=== PATIENT | male | born 1945 | race Caucasian/White ===

== ENCOUNTER 2016-12-15 12:05 | Emergency (ER) | payer OTHER, BC ==
[2016-12-15 12:12] VITALS: TEMP 98.3; BMI 27.8
--- NOTE | 2016-12-15 12:15 | PDOC ---
History of Present Illness - General Chief Complaint: Headache Stated Complaint: CHILLS, HEADACHE Time Seen by Provider: 12/15/16 12:08 History Source: Patient Exam Limitations: No Limitations - History of Present Illness Initial Comments: 12/15/16 12:13 This is a 71 yo M h/o hld, htn, afib s/p RF ablation who presents to the ER with a complaint of intermittent fevers and scalp sensitivity He was in his usual state of health until 2 weeks ago when he noted a gradual onset of symptoms Pt states he noted intermittent feelings of being feverish and left scalp sensitivity. He takes his temperature and never actually notes a fever This pain currently is 3/10 Pain is constant He typically takes Excedrine for his pain which improves his symptoms but never takes it away Denies trauma Denies travel Was seen by his PMD early into his symptoms, given Augmentin for a cough Pt states his cough has resolved Pt was also seen at an urgent care where, CXR was performed and read as negative PMH: migraines, hld, htn, afib s/p RF ablation PSH: RF ablation Meds: Elliquis ALL: NKDA Social: (+) social alcohol, denies drugs or cigarettes GENERAL/CONSTITUTIONAL: No: fever, chills, weakness, loss of appetite. HEAD, EYES, EARS, NOSE AND THROAT: No: change in vision, ear pain, discharge, sore throat, throat swelling. CARDIOVASCULAR: No: chest pain, lightheadedness, palpitations, syncope RESPIRATORY: No: cough, shortness of breath, wheezing, hemoptysis, stridor. GASTROINTESTINAL: No: nausea, vomiting, diarrhea, abdominal cramping, rectal bleeding, constipation. GENITOURINARY: No: dysuria, hematuria, frequency, urgency, flank pain. MUSCULOSKELETAL: No: back pain, neck pain, joint pain, muscle swelling or pain SKIN AND BREASTS: No: lesions, pallor, rash or easy bruising. NEUROLOGIC: No: headache, vertigo, paresthesias, weakness ENDOCRINE: No: unexplained weight gain or loss HEMATOLOGIC/LYMPHATIC: No: anemia, easy bleeding, swelling nodes. GENERAL: The patient is in no acute distress. HEAD: Normal with no signs of trauma. EYES: PERRLA, EOMI, sclera anicteric, conjunctiva clear. ENT: Ears normal, nares patent, oropharynx clear without exudates. Moist mucous membranes. NECK: Normal range of motion, supple without lymphadenopathy, JVD, or masses. LUNGS: Breath sounds equal, clear to auscultation bilaterally. No wheezes, and no crackles. HEART:Regular rate and rhythm, normal S1 and S2 without murmur, rub or gallop. ABDOMEN: Soft, nontender, normoactive bowel sounds. No guarding, no rebound. No masses palpable. EXTREMITIES: Normal range of motion, no edema. No clubbing or cyanosis. No erythema, or tenderness. NEUROLOGICAL: Cranial nerves II through XII grossly intact. Normal speech. No focal neurological deficits. MUSCULOSKELETAL: Back non-tender to palpation, no CVA tenderness SKIN: Warm, Dry, normal turgor, no rashes or lesions noted. 12/15/16 12:28 12/15/16 12:34 Past History - Past Medical History Allergies/Adverse Reactions: Allergies Allergy/AdvReac Type Severity Reaction Status Date / Time No Known Allergies Allergy Verified 01/18/14 13:47 Home Medications: Ambulatory Orders Ramipril 5 mg PO AM 01/18/14 Rosuvastatin Calcium [Crestor] 10 mg PO AM 01/18/14 Apixaban [Eliquis] 5 mg PO BID 12/15/16 Anemia: No Asthma: No Cancer: No Cardiac Disorders: Yes (ATRIAL FIBRILLATION) CVA: No COPD: No CHF: No Dementia: No Diabetes: No GI Disorders: No Disorders: No HTN: Yes Hypercholesterolemia: Yes Liver Disease: No Seizures: No Thyroid Disease: No - Surgical History Abdominal Surgery: No Appendectomy: No Cardiac Surgery: Yes (ABLATION FOR AFIB) Cholecystectomy: No Lung Surgery: No Neurologic Surgery: No Orthopedic Surgery: No - Psycho/Social/Smoking Cessation Hx Anxiety: No Suicidal Ideation: No Smoking History: Former smoker Have you smoked in the past 12 months: No Information on smoking cessation initiated: No Hx Alcohol Use: Yes (occasional) Drug/Substance Use Hx: No Substance Use Type: Alcohol Hx Substance Use Treatment: No *Physical Exam - Vital Signs Last Vital Signs Temp Pulse Resp BP Pulse Ox 98.3 F 53 L 18 145/86 99 12/15/16 12:05 12/15/16 12:05 12/15/16 12:05 12/15/16 12:05 12/15/16 12:05 Heart Score/ECG Review #1 ECG reviewed & interpreted by me at: 13:20 12/15/16 13:20 Twelve-lead EKG was performed and reviewed by me. There is normal sinus rhythm with a bradycardiac rate of 55 bpm. The axis is normal. The intervals are normal - pr:166ms, QRS:92ms, QTc:441ms. There are no ST elevations or depressions. T wave nml (+) PVC ED Treatment Course - LABORATORY CBC & Chemistry Diagram: 12/15/16 12:15 12/15/16 12:15 Medical Decision Making - Medical Decision Making 12/15/16 12:33 Will do basic labs Pt has already had a reportedly negative CXR and was already treated for pneumonia, will not do CXR Will do head CT will re assess 12/15/16 13:20 Laboratory Tests 12/15/16 12/15/16 12/15/16 12:15 12:15 12:15 WBC 5.1 Hgb 15.6 Hct 46.8 Plt Count 169 Neutrophils % 52.6 Lymphocytes % 30.7 Sodium 130 L Potassium 4.7 Chloride 98 Carbon Dioxide 25 Anion Gap 7 L BUN 19 H Creatinine 0.8 Random Glucose 95 Creatine Kinase 89 12/15/16 14:04 Laboratory Tests 12/15/16 12:15 Troponin I < 0.03 L 12/15/16 14:19 Case reviewed with Cardiology (who is upset that we even did an EKG) we were faxed copies of his old EKG which show bradycardia 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 I answered all of the patient's questions. The patient was satisfied with the care received and felt comfortable with the discharge plan and treatment plan. The patient will call their primary care physician within 24 hours to arrange follow-up and will return to the Emergency Department with any new, persistent or worsening symptoms. *DC/Admit/Observation/Transfer Diagnosis at time of Disposition: Headache Qualifiers: Headache type: unspecified Headache chronicity pattern: unspecified pattern Intractability: intractable Qualified Code(s): R51 - Headache - Discharge Dispostion Disposition: HOME Condition at time of disposition: Stable Admit: No - Patient Instructions Printed Discharge Instructions: DI for Headache Additional Instructions: Eugene Thanks for coming in to the ER today Please follow up with your PMD Return to the ER for any other concerns or complaints
[2016-12-15 12:54] LABS: BASOPHIL 1.7 % (0-2.0); EOSINOPHIL 1.9 % (0-4.5); MCH 30.3 pg (25.7-33.7); MCHC 33.3 g/dl (32.0-35.9); MEAN CELL VOLUME 90.9 fl (80-96); MEAN PLT VOLUME 9.1 fl (7.5-11.1); NEUTROPHILS 52.6 % (42.8-82.8); PLATELET COUNT 169 K/MM3 (134-434); RDW 12.5 % (11.9-15.9); WHITE BLOOD COUNT 5.1 K/mm3 (4.0-10.0)
[2016-12-15 13:12] LABS: ALK PHOS 30 U/L (32-92); ANION GAP 7 (8-16); BILIRUBIN,TOTAL 0.7 mg/dl (0.2-1.0); CALCIUM 9.7 mg/dl (8.4-10.2); CO2 25 mmol/L (22-28); CREATININE 0.8 mg/dl (0.6-1.3); GLUCOSE,RANDOM 95 mg/dl (74-106); SGOT/AST 19 U/L (10-42); SGPT/ALT 15 U/L (10-40); TOT PROT 7.1 g/dl (6.4-8.3)
[2016-12-15 13:13] LABS: CPK(DFH) 89 IU/L (38-174)
[2016-12-15 13:54] LABS: TROPONIN I (DFP) < 0.03 ng/ml (0.03-0.50)
[2016-12-15 14:38] VITALS: BP 132/58; PULSE 69
--- NOTE | 2016-12-16 18:13 | EKG ---
Test Reason : Blood Pressure : / mmHG Vent. Rate : 055 BPM Atrial Rate : 055 BPM P-R Int : 166 ms QRS Dur : 092 ms QT Int : 462 ms P-R-T Axes : 047 009 033 degrees QTc Int : 441 ms SINUS BRADYCARDIA WITH OCCASIONAL PREMATURE VENTRICULAR COMPLEXES AND PREMATURE ATRIAL COMPLEXES ABNORMAL ECG NO PREVIOUS ECGS AVAILABLE Confirmed by DARSHANA LOPEZ MD ([id number]) on 12/16/2016 6:12:38 PM Referred By: FIDENCIO CONTRERAS Confirmed By:DARSHANA LOPEZ MD
== END 2016-12-15 14:32 | disposition home or self-care (01) ==
LOC: FER 12:05
DX: R51 Headache (principal); I48.91 Unspecified atrial fibrillation; I10 Essential (primary) hypertension; E78.00 Pure hypercholesterolemia, unspecified; Z87.891 Personal history of nicotine dependence
CPT/HCPCS: 36415; 70450-TC; 80053; 82550; 84484; 85025; 87040; 87804; 93005; 99284-25

== ENCOUNTER 2016-12-18 11:35 | Emergency (ER) | payer OTHER, BC ==
--- NOTE | 2016-12-18 11:41 | PDOC ---
History of Present Illness - General Chief Complaint: Revisit, Lab Variance Stated Complaint: POSITIVE BLD CULTURE FINDINGS Time Seen by Provider: 12/18/16 11:41 - History of Present Illness Initial Comments: 12/18/16 11:55 Chief complaint: Fever/chills, fatigue, malaise History of present illness: Patient was evaluated in the emergency room 2 days ago, at which time blood cultures were drawn. Preliminary blood culture revealed gram-positive cocci in clusters, and the patient was called and asked to return to the ER for further evaluation. His original symptoms of fever/ chills, fatigue, and malaise have persisted. He complains of increased sensitivity of the scalp to touch, but no oma headache. Review of systems: Had a productive cough with blood-streaked sputum approximately 2 weeks ago, treated with a course of antibiotics which she finished approximately one week ago, and his chest symptoms have resolved. There is no headache or photophobia. There is no neck stiffness. There is no lightheadedness, dizziness, vertigo, URI symptoms, sore throat, cough, abdominal pain, nausea, vomiting, diarrhea, chest pain, shortness of breath. There is no dysuria, frequency, urgency, hesitancy, hematuria, perineal pain, or urethral discharge. There are no visual or focal neurologic symptoms or unsteadiness of gait Remainder systems reviewed and found to be negative Past medical history: History of similar "scalp sensitivity" a few years ago which lasted several minutes and resolved. Atrial fibrillation, status post ablation, implanted heart monitor. High blood pressure. Elevated cholesterol Medications: Eliquis, ramipril, Crestor aggravated ALLERGIES: None Social history: Former smoker but no current use of tobacco. No nonprescription drugs. Fully active and ambulatory. Occasional social alcohol, none recently Family history: Reviewed and noncontributory including early coronary artery disease, metabolic disease including diabetes, immune diseases, and cancer Physical exam: Alert and oriented 3, well-developed well-nourished, no acute distress, cooperative Temperature 98.4, remainder of vital signs normal PERRLA, fundi benign, ENT clear Neck supple without bruit mass or nodes Lungs clear to P&A with full breath sounds throughout bilaterally CV S1 and S2 normal, rate is irregularly irregular 60/m, no murmurs rubs or gallops. Pulses full and symmetric. No JVD or edema. No bruits Abdomen nondistended, normal bowel sounds. Soft without masses tenderness organomegaly exam testes descended bilaterally, no masses or tenderness, no urethral discharge. No rashes Extremities no CCE Skin clear, no rash, adequate turgor and what mucous membranes Neurological C2 to 12 intact. Strength full and symmetric. No focal sensory or motor deficits. Gait stable and unimpaired Impression: No obvious sign of infection, although there is general fatigue and malaise. No fever at present, but the patient is a history of persistent subjective fever and chills. Preliminary positive blood culture 2 days ago, possible occult infection in the lungs, urinary tract, or implanted cardiac device. Possible occult endocarditis Plan: Repeat complete blood count cultures, CBC and chemistry, urinalysis and urine culture, chest x-ray, empiric antibiotics and observation. Past History - Past Medical History Allergies/Adverse Reactions: Allergies Allergy/AdvReac Type Severity Reaction Status Date / Time No Known Allergies Allergy Verified 01/18/14 13:47 Home Medications: Ambulatory Orders Ramipril 5 mg PO AM 01/18/14 Rosuvastatin Calcium [Crestor] 10 mg PO AM 01/18/14 Apixaban [Eliquis] 5 mg PO BID 12/15/16 Anemia: No Asthma: No Cancer: No Cardiac Disorders: Yes (ATRIAL FIBRILLATION) CVA: No COPD: No CHF: No Dementia: No Diabetes: No GI Disorders: No Disorders: No HTN: Yes Hypercholesterolemia: Yes Liver Disease: No Seizures: No Thyroid Disease: No - Surgical History Abdominal Surgery: No Appendectomy: No Cardiac Surgery: No Cholecystectomy: No Lung Surgery: No Neurologic Surgery: No Orthopedic Surgery: No - Psycho/Social/Smoking Cessation Hx Anxiety: No Suicidal Ideation: No Smoking History: Former smoker Have you smoked in the past 12 months: No Information on smoking cessation initiated: No Hx Alcohol Use: Yes Drug/Substance Use Hx: No Substance Use Type: Alcohol Hx Substance Use Treatment: No ED Treatment Course - LABORATORY CBC & Chemistry Diagram: 12/18/16 12:00 12/18/16 12:00 Medical Decision Making - Medical Decision Making 12/18/16 13:45 Chest x-ray clear: Urinalysis clear: White count normal. No other significant abnormalities on laboratory work. Late growth in the blood culture may represent a contaminant with skin debby. Positive identification should be available tomorrow Patient appears stable at present. No obvious sign of infection. Condition slowly improving Spoke by phone with Dr. Luevano, infectious disease consult. He reviewed the blood culture, as well as today's lab results. He suspects that after several days, the growth in the blood culture is probably a contaminant. He recommends 1 dose of vancomycin intravenously now, okay for discharge and follow-up tomorrow. 12/18/16 15:30 *DC/Admit/Observation/Transfer Diagnosis at time of Disposition: Viral syndrome - Discharge Dispostion Disposition: HOME Condition at time of disposition: Stable Admit: No - Referrals Referrals: Brett Luevano MD [Staff Physician] - 24 hours - Patient Instructions Printed Discharge Instructions: DI for Viral Syndrome Additional Instructions: Rest, fluids, You will be contacted tomorrow with further results of your blood cultures. They will be reviewed by infectious disease specialist. Return to the hospital immediately if you experience high fevers or shaking chills. - Post Discharge Activity Work/School Note: Back to Work
[2016-12-18 11:45] VITALS: BMI 27.8
[2016-12-18 12:24] LABS: BASOPHIL 1.1 % (0-2.0); EOSINOPHIL 1.1 % (0-4.5); MCHC 32.8 g/dl (32.0-35.9); MEAN CELL VOLUME 91.4 fl (80-96); PLATELET COUNT 183 K/MM3 (134-434); RDW 12.1 % (11.9-15.9)
[2016-12-18 12:36] LABS: ALK PHOS 29 U/L (32-92); ANION GAP 9 (8-16); BILIRUBIN,TOTAL 0.8 mg/dl (0.2-1.0); CALCIUM 9.7 mg/dl (8.4-10.2); CO2 24 mmol/L (22-28); CPK(DFH) 80 IU/L (38-174); CREATININE 0.9 mg/dl (0.6-1.3); GLUCOSE,RANDOM 94 mg/dl (74-106); SGOT/AST 20 U/L (10-42); SGPT/ALT 14 U/L (10-40); TOT PROT 7.3 g/dl (6.4-8.3)
[2016-12-18 12:51] LABS: URINE APPEARANCE Clear; URINE BILIRUBIN Negative (NEGATIVE); URINE BLOOD Negative (NEGATIVE); URINE COLOR YELLOW; URINE GLUCOSE (UA) Negative (NEGATIVE); URINE KETONE Negative (NEGATIVE); URINE LEUK ESTERASE Negative (NEGATIVE); URINE NITRITE Negative (NEGATIVE); URINE PROTEIN Negative (NEGATIVE); URINE UROBILINOGEN 0.2 E.U/dl (0.2-1.0)
[2016-12-18 12:53] LABS: TROPONIN I (DFP) < 0.03 ng/ml (0.03-0.50)
[2016-12-18 13:36] LABS: INR 1.5 (0.82-1.09); PROTHROMBIN TIME (PATIENT) 16.3 SEC (10.2-13.0)
[2016-12-18] MEDS ORDERED: SODIUM CHLORIDE 1,000 ML IV STA (13:44)
[2016-12-18] MEDS ORDERED: VANCOMYCIN 1,000 MG in DEXTROSE 5%-WATER - 250 ML IVPB ONE (13:44)
[2016-12-18] MEDS ORDERED: VANCOMYCIN 1,000 MG VIAL (RESTRICTED TO ID ONLY) ONE (13:48)
[2016-12-18 16:14] VITALS: BP 118/66; PULSE 78; TEMP 97.6
--- NOTE | 2016-12-19 17:42 | EKG ---
Test Reason : Blood Pressure : / mmHG Vent. Rate : 057 BPM Atrial Rate : 057 BPM P-R Int : 182 ms QRS Dur : 086 ms QT Int : 450 ms P-R-T Axes : 044 005 050 degrees QTc Int : 438 ms SINUS BRADYCARDIA WITH MARKED SINUS ARRHYTHMIA WITH OCCASIONAL PREMATURE VENTRICULAR COMPLEXES OTHERWISE NORMAL ECG WHEN COMPARED WITH ECG OF 15-DEC-2016 13:00, NO SIGNIFICANT CHANGE WAS FOUND Confirmed by NALINI RUSHING, TERESA ([id number]) on 12/19/2016 5:42:10 PM Referred By: KATIA SMITH Confirmed By:TERESA GAYLE MD
== END 2016-12-18 16:15 | disposition home or self-care (01) ==
LOC: FER 11:35
PROC: 3E03329 Introduction of Other Anti-infective into Peripheral Vein, Percutaneous Approach (ICD-10-PCS; principal; 2016-12-18)
PROC: 3E0337Z Introduction of Electrolytic and Water Balance Substance into Peripheral Vein, Percutaneous Approach (ICD-10-PCS; 2016-12-18)
DX: B34.9 Viral infection, unspecified (principal); I48.91 Unspecified atrial fibrillation; I10 Essential (primary) hypertension; E78.00 Pure hypercholesterolemia, unspecified; Z87.891 Personal history of nicotine dependence
CPT/HCPCS: 36415; 71020-TC; 80053; 81003; 82550; 84484; 85025; 85610; 87040; 87086; 93005; 96365; 96368; 99284-25

== ENCOUNTER 2017-06-14 07:41 | Day surgery (SDC) | payer OTHER, BC ==
[2017-06-07 14:00] VITALS: BMI 28.0
[2017-06-14] MEDS ORDERED: PROPOFOL 20 ML ONE ×2 (07:48)
[2017-06-14] MEDS ORDERED: LIDOCAINE HCL/PF 2% SDV 5ML VIAL ONE (07:48)
[2017-06-14 09:53] VITALS: TEMP 98.1
[2017-06-14 10:11] VITALS: BP 131/70; PULSE 45
== END 2017-06-14 10:25 | disposition home or self-care (01) ==
LOC: FASU-ENDO 07:41
PROVIDERS: ATTEND Internal Medicine Gastroenterology
PROC: 0DJD8ZZ Inspection of Lower Intestinal Tract, Via Natural or Artificial Opening Endoscopic (ICD-10-PCS; principal; 2017-06-14 09:24)
DX: Z86.010 Personal history of colon polyps (principal); Z80.0 Family history of malignant neoplasm of digestive organs; K57.30 Diverticulosis of large intestine without perforation or abscess without bleeding

== ENCOUNTER 2022-10-18 07:15 | Day surgery (SDC) | payer OTHER, BC ==
[2022-10-16 16:17] VITALS: BMI 29.1
[2022-10-18] MEDS ORDERED: PROPOFOL 120 ML ONE (07:35)
[2022-10-18] MEDS ORDERED: LIDOCAINE HCL/PF 2% SDV 5ML VIAL ONE (07:35)
[2022-10-18 08:49] VITALS: BP 112/80; PULSE 82; RESP 19; TEMP 97.8
== END 2022-10-18 08:49 | disposition home or self-care (01) ==
LOC: FASU-ENDO 07:15
PROVIDERS: ATTEND Internal Medicine Gastroenterology
PROC: 0DBP8ZX Excision of Rectum, Via Natural or Artificial Opening Endoscopic, Diagnostic (ICD-10-PCS; principal; 2022-10-18 07:58)
DX: Z12.11 Encounter for screening for malignant neoplasm of colon (principal); Z80.0 Family history of malignant neoplasm of digestive organs; K57.30 Diverticulosis of large intestine without perforation or abscess without bleeding; K62.1 Rectal polyp
CPT/HCPCS: 88305-TC